=== PATIENT | male | born 1985 | race Caucasian/White ===

== ENCOUNTER → 2016-12-05 | Outpatient (CLI) | payer BC ==
[~2016-12-05] MED LIST: IOPAMIDOL (ISOVUE-300) 100 ML BTL ONE
== END ==
LOC: FIMAGING 13:15
PROVIDERS: ATTEND Family Medicine
DX: R10.11 Right upper quadrant pain (principal); R16.1 Splenomegaly, not elsewhere classified
CPT/HCPCS: Q9967